=== PATIENT | female | born 1960 | race Caucasian/White ===

== ENCOUNTER → 2016-06-25 | Outpatient (CLI) | payer OTHER ==
[~2016-06-25] MED LIST: ADVAIR 500-501 EACH INH; CHANTIX0.5 MG PO; CLARITIN10 MG PO; DICYCLOMINE HCL20 MG PO; HYDROXYZINE HCL25 MG PO; KLONOPIN TAB 00.5 MG PO; LYRICA75 MG PO; MEDROL DOSEPAK 24 MG PO; NEXIUM40 MG PO; NORVASC 5 MG TAB5 MG PO; OMNICEF 300 MG300 MG PO; PROZAC40 MG PO; REQUIP1 MG PO; ROBITUSSIN PO; SINGULAIR10 MG PO; SYMBICORT 16010.2 GM INH; TRAZODONE HCL100 MG PO; TUDORZA PRESS400 MCG INH; VENTOLIN HFA 66.7 GM INH; VITAMIN D35000 UNIT PO; ZANTAC 150 MG150 MG PO
== END ==
LOC: KOH-I 07:53
DX: R10.9 Unspecified abdominal pain (principal); K76.0 Fatty (change of) liver, not elsewhere classified
CPT/HCPCS: 76705

== ENCOUNTER 2016-06-29 14:13 | Emergency (ER) | payer OTHER ==
[~2016-06-29 14:13] MED LIST changes: -ADVAIR 500-501 EACH INH; -CHANTIX0.5 MG PO
[2016-06-29 15:45] LABS: HEMOGLOBIN 11.6 gm/dl (12.3-15.3); RED BLOOD COUNT 3.95 M/UL (4.00-5.10); WHITE BLOOD COUNT 4.9 K/UL (4.5-11.0)
[2016-07-15] MEDS ORDERED: ADVAIR 500-501 EACH INH (09:18)
[2016-07-15] MEDS ORDERED: CHANTIX0.5 MG PO (09:20)
== END 2016-06-29 18:00 | disposition home or self-care (01) ==
LOC: ER1 14:13
PROVIDERS: Nurse Practitioner Family
DX: N20.0 Calculus of kidney (principal); J44.9 Chronic obstructive pulmonary disease, unspecified; J45.909 Unspecified asthma, uncomplicated; F17.210 Nicotine dependence, cigarettes, uncomplicated
CPT/HCPCS: 36415; 80053; 81001; 85025; 87086; 96374; 96375; 99284; J1885; J2270; J2405; J7030

== ENCOUNTER → 2016-07-12 | Outpatient (CLI) | payer OTHER ==
[~2016-07-12] MED LIST changes: +ADVAIR 500-501 EACH INH; +CHANTIX0.5 MG PO
== END ==
LOC: NM 11:02
DX: M54.9 Dorsalgia, unspecified (principal); M25.511 Pain in right shoulder; M25.512 Pain in left shoulder; R10.13 Epigastric pain; M25.812 Other specified joint disorders, left shoulder; M25.811 Other specified joint disorders, right shoulder; M48.06 Spinal stenosis, lumbar region
CPT/HCPCS: 72072; 72110; 73030; 78227; A9537; J2805

== ENCOUNTER → 2016-07-15 | Day surgery (SDC) | payer OTHER | END | disposition home or self-care (01) | LOC: OR 08:10 | PROVIDERS: Internal Medicine Gastroenterology | PROC: 0DB38ZX Excision of Lower Esophagus, Via Natural or Artificial Opening Endoscopic, Diagnostic (ICD-10-PCS; 2016-07-15) | PROC: 0DB48ZX Excision of Esophagogastric Junction, Via Natural or Artificial Opening Endoscopic, Diagnostic (ICD-10-PCS; 2016-07-15) | PROC: 0DB68ZX Excision of Stomach, Via Natural or Artificial Opening Endoscopic, Diagnostic (ICD-10-PCS; principal; 2016-07-15 14:30) | DX: K29.51 Unspecified chronic gastritis with bleeding (principal); K20.9 Esophagitis, unspecified; K44.9 Diaphragmatic hernia without obstruction or gangrene; J44.9 Chronic obstructive pulmonary disease, unspecified; J45.909 Unspecified asthma, uncomplicated; E66.9 Obesity, unspecified; R63.4 Abnormal weight loss; F17.200 Nicotine dependence, unspecified, uncomplicated; Z79.899 Other long term (current) drug therapy; Z98.51 Tubal ligation status | CPT/HCPCS: J2250; J3010; J7030 ==

== ENCOUNTER → 2016-08-23 | Outpatient (CLI) | payer OTHER ==
[2016-08-23 10:41] LABS: HEMOGLOBIN 13.4 gm/dl (12.3-15.3); RED BLOOD COUNT 4.57 M/UL (4.00-5.10); WHITE BLOOD COUNT 4.2 K/UL (4.5-11.0)
== END ==
LOC: LAB 09:56
PROVIDERS: Internal Medicine Nephrology
DX: N18.3 Chronic kidney disease, stage 3 (moderate) (principal)
CPT/HCPCS: 36415; 81001; 82043; 82570; 85027

== ENCOUNTER → 2016-08-26 | Outpatient (CLI) | payer OTHER | LOC: LAB 11:25 | PROVIDERS: Internal Medicine Nephrology | DX: N18.3 Chronic kidney disease, stage 3 (moderate) (principal) | CPT/HCPCS: 36415; 80048; 82550 ==

== ENCOUNTER 2016-08-30 17:38 | Emergency (ER) | payer OTHER ==
[2016-08-30 19:30] LABS: HEMOGLOBIN 11.4 gm/dl (12.3-15.3); RED BLOOD COUNT 3.91 M/UL (4.00-5.10); WHITE BLOOD COUNT 4.3 K/UL (4.5-11.0)
== END 2016-08-31 00:40 | disposition home or self-care (01) ==
LOC: ER1 17:38
PROVIDERS: Physician Assistant
DX: R10.827 Generalized rebound abdominal tenderness (principal); K21.9 Gastro-esophageal reflux disease without esophagitis; E78.5 Hyperlipidemia, unspecified; I13.10 Hypertensive heart and chronic kidney disease without heart failure, with stage 1 through stage 4 chronic kidney disease, or unspecified chronic kidney disease; F17.210 Nicotine dependence, cigarettes, uncomplicated; N18.9 Chronic kidney disease, unspecified; J44.9 Chronic obstructive pulmonary disease, unspecified; J45.909 Unspecified asthma, uncomplicated; F32.9 Major depressive disorder, single episode, unspecified; F41.9 Anxiety disorder, unspecified; J98.4 Other disorders of lung
CPT/HCPCS: 36415; 80053; 81001; 83690; 84484; 85025; 87086; 93005; 96374; 96375; 96376; 99284; J2270; J2405; J7050

== ENCOUNTER 2016-09-21 17:28 | Emergency (ER) | payer OTHER | END 2016-09-21 22:00 | disposition left against medical advice (07) | LOC: ER1 17:28 | DX: Z53.21 Procedure and treatment not carried out due to patient leaving prior to being seen by health care provider (principal) | CPT/HCPCS: 81001; 87086 ==

== ENCOUNTER 2016-09-29 13:38 | Emergency (ER) | payer OTHER ==
[2016-09-29 14:38] LABS: HEMOGLOBIN 13.8 gm/dl (12.3-15.3); RED BLOOD COUNT 4.69 M/UL (4.00-5.10)
== END 2016-09-29 18:10 | disposition home or self-care (01) ==
LOC: ER1 13:38
PROVIDERS: Emergency Medicine
DX: N39.0 Urinary tract infection, site not specified (principal); F17.200 Nicotine dependence, unspecified, uncomplicated; F41.9 Anxiety disorder, unspecified; Z98.51 Tubal ligation status; Z88.6 Allergy status to analgesic agent
CPT/HCPCS: 36415; 80053; 81001; 83690; 85025; 87040; 87086; 96374; 96375; 96376; 99284; J0696; J2270; J2405; J7050

== ENCOUNTER 2016-12-25 11:11 | Emergency (ER) | payer OTHER | END 2016-12-25 12:10 | disposition home or self-care (01) | LOC: ER1 11:11 | DX: G43.709 Chronic migraine without aura, not intractable, without status migrainosus (principal); I12.9 Hypertensive chronic kidney disease with stage 1 through stage 4 chronic kidney disease, or unspecified chronic kidney disease; N18.3 Chronic kidney disease, stage 3 (moderate); J45.909 Unspecified asthma, uncomplicated; F17.210 Nicotine dependence, cigarettes, uncomplicated; Z88.6 Allergy status to analgesic agent | CPT/HCPCS: 96372; 99283; J1100 ==

== ENCOUNTER → 2020-06-09 | Outpatient (CLI) | payer OTHER ==
[~2020-06-09] MED LIST changes: +ACID CONTROLLER20 MG PO; +ALBUTEROL1.25 MG/3 INH; +AMOXICILLIN500 MG PO; +AUGMENTIN 875-1 EACH PO; +BACTRIM DS TAB1 EACH PO; +BENTYL 10MG CAP10 MG PO; +BENTYL 20MG TAB20 MG PO; +BUSPAR 10MG10 MG PO; +CEFUROXIME500 MG PO; +COLACE CLEAR50 MG PO; +COMBIVENT RESPIM4 GM INH; +COMPAZINE10 MG PO; +CYCLOBENZAPRINE10 MG PO; +CYMBALTA 30 MG30 MG PO; +DOXYCYCLINE HY100 M2 PO; +DOXYCYCLINE HY100 MG PO; +FLONASE 0.05% N16 GM; +FLOVENT DISKU100 MCG INH; +HABITROL 21 MG P1 EA TD; +IMITREX100 MG PO; +INCRUSE ELLI62.5 MCG INH; +IPRAT-ALBUT 0.5-3 ML INH; +LASIX 40 MG TAB40 MG PO; +LORTAB 7.5-3251 EACH PO; +MACROBID 100 M100 MG PO; +MEDROL4 MG PO; +NASONEX17 GM; +NICOTINE GUM4 MG BU; +NITROSTAT0.4 MG SL; +NORCO 5-325 TA1 EACH PO; +NORCO 7.5-3251 EACH PO; +NORFLEX 100 MG100 MG PO; +NORVASC10 MG PO; +NURTEC ODT75 MG PO; +ONDANSETRON ODT4 MG PO; +PERCOCET 5-3251 EACH PO; +PERCOCET 5/325 T1 EA PO; +PHENERGAN 25 MG25 M1 PO; +PREDNISONE 20 M20 MG PO; +PREDNISONE 50 M50 MG PO; +PROAIR DIGIHAL90 MCG INH; +REGLAN10 MG PO; +ROBITUSSIN100 MG/51 PO; +ROPINIROLE HCL2 MG PO; +SYMBICORT 160-1 INHA INH; +TESSALON PERLE100 MG PO; +TIZANIDINE HCL4 MG PO; +TRAZODONE HCL50 MG PO; +TYLENOL 500 MG500 MG PO; +VIBRAMYCIN 100100 MG PO; +VIBRAMYCIN100 MG PO; +VISTARIL25 MG PO; +Voltaren Gel 1 % TOP; +ZANAFLEX4 M1 PO; +ZITHROMAX250 MG PO; +ZOFRAN ODT 4 MG4 MG PO; +ZOFRAN ODT 4 MG4 MG SL; +ZOFRAN4 MG PO; +ZYRTEC10 M3 PO
[2020-06-09 15:10] LABS: HEMOGLOBIN 13.7 gm/dl (12.3-15.3); RED BLOOD COUNT 4.44 M/UL (4.00-5.10)
== END ==
LOC: LAB 13:45
PROVIDERS: Internal Medicine Gastroenterology
DX: R10.10 Upper abdominal pain, unspecified (principal)
CPT/HCPCS: 36415; 80076; 82150; 83690; 85027

== ENCOUNTER → 2020-06-11 | Day surgery (SDC) | payer OTHER | END | disposition home or self-care (01) | LOC: OR 07:30 | PROVIDERS: Internal Medicine Gastroenterology | PROC: 0DB78ZX Excision of Stomach, Pylorus, Via Natural or Artificial Opening Endoscopic, Diagnostic (ICD-10-PCS; 2020-06-11) | PROC: 0DB68ZX Excision of Stomach, Via Natural or Artificial Opening Endoscopic, Diagnostic (ICD-10-PCS; 2020-06-11) | PROC: 0DB38ZX Excision of Lower Esophagus, Via Natural or Artificial Opening Endoscopic, Diagnostic (ICD-10-PCS; principal; 2020-06-11 09:40) | DX: K31.9 Disease of stomach and duodenum, unspecified (principal); K44.9 Diaphragmatic hernia without obstruction or gangrene; K21.00 Gastro-esophageal reflux disease with esophagitis, without bleeding; K29.50 Unspecified chronic gastritis without bleeding; K59.09 Other constipation; E78.5 Hyperlipidemia, unspecified; J44.9 Chronic obstructive pulmonary disease, unspecified; G43.909 Migraine, unspecified, not intractable, without status migrainosus; I12.9 Hypertensive chronic kidney disease with stage 1 through stage 4 chronic kidney disease, or unspecified chronic kidney disease; N18.30 Chronic kidney disease, stage 3 unspecified; F17.210 Nicotine dependence, cigarettes, uncomplicated; E66.9 Obesity, unspecified; Z68.30 Body mass index [BMI] 30.0-30.9, adult; Z88.6 Allergy status to analgesic agent; Z88.5 Allergy status to narcotic agent; Z79.899 Other long term (current) drug therapy; Z88.8 Allergy status to other drugs, medicaments and biological substances; Z99.81 Dependence on supplemental oxygen | CPT/HCPCS: J2704; J7040 ==

== ENCOUNTER 2020-06-30 15:04 | Emergency (ER) | payer OTHER ==
[~2020-06-30 15:04] MED LIST changes: -IMITREX100 MG PO; -ZOFRAN ODT 4 MG4 MG SL
[2020-06-30] MEDS ORDERED: ZOFRAN ODT 4 MG4 MG SL (17:25)
== END 2020-06-30 17:28 | disposition home or self-care (01) ==
LOC: ER1 15:04
DX: R11.2 Nausea with vomiting, unspecified (principal); J44.9 Chronic obstructive pulmonary disease, unspecified; Z20.822 Contact with and (suspected) exposure to COVID-19; N18.30 Chronic kidney disease, stage 3 unspecified; F17.210 Nicotine dependence, cigarettes, uncomplicated; Z88.6 Allergy status to analgesic agent; Z88.5 Allergy status to narcotic agent
CPT/HCPCS: 0240U; 71045; 99284

== ENCOUNTER 2020-07-29 22:43 | Observation (INO) | payer OTHER ==
[~2020-07-29] VITALS: Ht 154.9 cm; Wt 69.9 kg
[~2020-07-29 22:43] MED LIST changes: +ZOFRAN ODT 4 MG4 MG SL
[2020-07-30 00:28] LABS: HEMOGLOBIN 13.3 gm/dl (12.3-15.3); RED BLOOD COUNT 4.24 M/UL (4.00-5.10); WHITE BLOOD COUNT 8.7 K/UL (4.5-11.0)
[2020-07-30] MEDS ORDERED: IMITREX100 MG PO (10:26)
[2020-07-30] MEDS ORDERED: MEDROL DOSEPAK 24 MG PO (18:51)
== END 2020-07-30 19:48 | disposition home or self-care (01) ==
LOC: ER1 22:43 → CDU 07-30 01:57 → M/S 07-30 16:11
PROVIDERS: Student in an Organized Health Care Education/Training Program; ADMIT Internal Medicine
DX: I25.110 Atherosclerotic heart disease of native coronary artery with unstable angina pectoris (principal); J44.1 Chronic obstructive pulmonary disease with (acute) exacerbation; J96.01 Acute respiratory failure with hypoxia; N18.30 Chronic kidney disease, stage 3 unspecified; R77.8 Other specified abnormalities of plasma proteins; F41.9 Anxiety disorder, unspecified; K21.9 Gastro-esophageal reflux disease without esophagitis; F32.9 Major depressive disorder, single episode, unspecified; R94.31 Abnormal electrocardiogram [ECG] [EKG]; F17.210 Nicotine dependence, cigarettes, uncomplicated; Z99.81 Dependence on supplemental oxygen; Z88.5 Allergy status to narcotic agent; Z88.6 Allergy status to analgesic agent; Z88.8 Allergy status to other drugs, medicaments and biological substances; Z79.899 Other long term (current) drug therapy; Z20.822 Contact with and (suspected) exposure to COVID-19
CPT/HCPCS: 0240U; 36600; 71045; 80053; 82550; 82553; 82803; 83605; 83690; 83735; 83874; 83880; 84100; 84484; 85025; 85379; 85610; 85730; 93005; 94640; 94664; 94760; 96374; 96375; 99152; 99285; C1887; C1894; G0378; J1644; J2250; J2270; J2405; J2550; J2765; J2920; J3010; J7030; Q9965

== ENCOUNTER 2020-08-31 18:50 | Emergency (ER) | payer OTHER ==
[~2020-08-31 18:50] MED LIST changes: +IMITREX100 MG PO
[2020-08-31 21:14] LABS: HEMOGLOBIN 13.9 gm/dl (12.3-15.3); RED BLOOD COUNT 4.41 M/UL (4.00-5.10); WHITE BLOOD COUNT 4.8 K/UL (4.5-11.0)
[2020-08-31 21:41] LABS: BUN/CREATININE RATIO 12 (0-10)
[2020-08-31] MEDS ORDERED: OMNICEF 300 MG300 MG PO (23:11)
== END 2020-08-31 23:21 | disposition home or self-care (01) ==
LOC: ER1 18:50
PROVIDERS: Family Medicine
DX: N30.90 Cystitis, unspecified without hematuria (principal); G43.909 Migraine, unspecified, not intractable, without status migrainosus; J44.9 Chronic obstructive pulmonary disease, unspecified; N18.30 Chronic kidney disease, stage 3 unspecified; F17.200 Nicotine dependence, unspecified, uncomplicated; Z87.442 Personal history of urinary calculi; Z88.6 Allergy status to analgesic agent
CPT/HCPCS: 70450; 80053; 81001; 82550; 82553; 83690; 83874; 84484; 85025; 87086; 93005; 96374; 96375; 99284; J0696; J2270; J2405

== ENCOUNTER 2020-10-17 17:28 | Emergency (ER) | payer OTHER ==
[2020-10-17 18:00] LABS: HEMOGLOBIN 13.3 gm/dl (12.3-15.3); RED BLOOD COUNT 4.22 M/UL (4.00-5.10); WHITE BLOOD COUNT 6.6 K/UL (4.5-11.0)
[2020-10-17] MEDS ORDERED: PERCOCET 5-3251 EACH PO (23:15)
== END 2020-10-17 23:45 | disposition home or self-care (01) ==
LOC: ER1 17:28
PROVIDERS: Physician Assistant Medical
DX: R07.81 Pleurodynia (principal); J44.9 Chronic obstructive pulmonary disease, unspecified; I50.9 Heart failure, unspecified; Z90.49 Acquired absence of other specified parts of digestive tract; N18.9 Chronic kidney disease, unspecified; F17.290 Nicotine dependence, other tobacco product, uncomplicated
CPT/HCPCS: 71045; 80053; 82550; 82553; 83874; 83880; 84484; 85025; 85379; 93005; 99285; Q9967

== ENCOUNTER 2020-11-01 11:44 | Emergency (ER) | payer OTHER ==
[2020-11-01 14:22] LABS: HEMOGLOBIN 12.7 gm/dl (12.3-15.3); RED BLOOD COUNT 4.06 M/UL (4.00-5.10); WHITE BLOOD COUNT 5.8 K/UL (4.5-11.0)
[2020-11-01 14:44] LABS: BUN/CREATININE RATIO 13 (0-10)
== END 2020-11-01 18:27 | disposition home or self-care (01) ==
LOC: ER1 11:44
PROVIDERS: Physician Assistant
DX: R07.89 Other chest pain (principal); J44.9 Chronic obstructive pulmonary disease, unspecified; F17.200 Nicotine dependence, unspecified, uncomplicated
CPT/HCPCS: 71045; 80053; 82550; 82553; 83874; 84484; 85025; 93005; 96374; 96375; 99285; J0696; J2270; J2405

== ENCOUNTER 2020-11-08 22:14 | Emergency (ER) | payer OTHER ==
[2020-11-09 00:50] LABS: HEMOGLOBIN 12.3 gm/dl (12.3-15.3); RED BLOOD COUNT 4.08 M/UL (4.00-5.10)
== END 2020-11-09 05:55 | disposition short-term general hospital (02) ==
LOC: ER1 22:14
PROVIDERS: Physician Assistant Medical; Student in an Organized Health Care Education/Training Program
DX: R20.2 Paresthesia of skin (principal); J44.9 Chronic obstructive pulmonary disease, unspecified; N18.9 Chronic kidney disease, unspecified; F17.210 Nicotine dependence, cigarettes, uncomplicated; Z88.6 Allergy status to analgesic agent; Z90.49 Acquired absence of other specified parts of digestive tract; Z20.822 Contact with and (suspected) exposure to COVID-19
CPT/HCPCS: 0240U; 70450; 71045; 80053; 80307; 81001; 82550; 82553; 83605; 83735; 83874; 84100; 84439; 84443; 84484; 85025; 93005; 96374; 99285; J2270

== ENCOUNTER 2020-12-09 19:15 | Emergency (ER) | payer OTHER ==
[2020-12-09 21:20] LABS: HEMOGLOBIN 13.7 gm/dl (12.3-15.3); RED BLOOD COUNT 4.38 M/UL (4.00-5.10); WHITE BLOOD COUNT 6.8 K/UL (4.5-11.0)
[2020-12-09] MEDS ORDERED: OMNICEF 300 MG300 MG PO (22:21)
[2020-12-09] MEDS ORDERED: BENTYL 20MG TAB20 MG PO (22:21)
[2020-12-09] MEDS ORDERED: ZOFRAN4 MG PO (22:21)
== END 2020-12-09 22:26 | disposition home or self-care (01) ==
LOC: ER1 19:15
PROVIDERS: Physician Assistant Medical
DX: R10.9 Unspecified abdominal pain (principal); Z87.442 Personal history of urinary calculi; Z90.49 Acquired absence of other specified parts of digestive tract
CPT/HCPCS: 80053; 81001; 85025; 99284

== ENCOUNTER 2020-12-13 21:22 | Emergency (ER) | payer OTHER ==
[2020-12-14] MEDS ORDERED: CYCLOBENZAPRINE10 MG PO (01:59)
== END 2020-12-14 02:25 | disposition home or self-care (01) ==
LOC: ER1 21:22
DX: M25.561 Pain in right knee (principal); M25.551 Pain in right hip; J44.9 Chronic obstructive pulmonary disease, unspecified; Z88.6 Allergy status to analgesic agent; Z88.5 Allergy status to narcotic agent
CPT/HCPCS: 73502; 73552; 73562; 99283

== ENCOUNTER 2021-04-21 16:55 | Emergency (ER) | payer OTHER ==
[2021-04-21] MEDS ORDERED: PERCOCET 5/325 T1 EA PO (19:33)
== END 2021-04-21 20:05 | disposition home or self-care (01) ==
LOC: ER1 16:55
DX: R51.9 Headache, unspecified (principal); N18.30 Chronic kidney disease, stage 3 unspecified; F17.290 Nicotine dependence, other tobacco product, uncomplicated; J44.9 Chronic obstructive pulmonary disease, unspecified; G89.29 Other chronic pain
CPT/HCPCS: 96372; 99283; J2270; J2550

== ENCOUNTER 2021-06-28 18:41 | Emergency (ER) | payer OTHER ==
[2021-06-28 19:55] LABS: HEMOGLOBIN 10.7 gm/dl (12.3-15.3); RED BLOOD COUNT 3.44 M/UL (4.00-5.10); WHITE BLOOD COUNT 7.5 K/UL (4.5-11.0)
== END 2021-06-28 22:57 | disposition home or self-care (01) ==
LOC: ER1 18:41
PROVIDERS: Family Medicine
DX: G89.29 Other chronic pain (principal); M54.50 Low back pain, unspecified; J44.9 Chronic obstructive pulmonary disease, unspecified; N17.9 Acute kidney failure, unspecified; E86.0 Dehydration; D64.9 Anemia, unspecified; R20.1 Hypoesthesia of skin; Z87.442 Personal history of urinary calculi
CPT/HCPCS: 71045; 80053; 81001; 82550; 82553; 83605; 84484; 85025; 93005; 99284

== ENCOUNTER 2021-08-07 20:42 | Emergency (ER) | payer OTHER | END 2021-08-08 02:24 | disposition home or self-care (01) | LOC: ER1 20:42 | DX: R51.9 Headache, unspecified (principal); J44.9 Chronic obstructive pulmonary disease, unspecified; F17.200 Nicotine dependence, unspecified, uncomplicated; Z88.6 Allergy status to analgesic agent; Z88.5 Allergy status to narcotic agent | CPT/HCPCS: 71045; 96374; 96375; 99284; J2765 ==

== ENCOUNTER 2021-10-04 17:28 | Emergency (ER) | payer OTHER ==
[~2021-10-04 17:28] MED LIST changes: +PREDNISONE20 MG PO
== END 2021-10-04 18:07 | disposition home or self-care (01) ==
LOC: ER1 17:28
DX: G43.909 Migraine, unspecified, not intractable, without status migrainosus (principal); I10 Essential (primary) hypertension
CPT/HCPCS: 96372; 99283; J2270; J2405

== ENCOUNTER 2021-10-05 17:47 | Emergency (ER) | payer OTHER ==
[2021-10-05 20:28] LABS: HEMOGLOBIN 12.9 gm/dl (12.3-15.3); RED BLOOD COUNT 4.27 M/UL (4.00-5.10); WHITE BLOOD COUNT 5.7 K/UL (4.5-11.0)
== END 2021-10-05 21:55 | disposition home or self-care (01) ==
LOC: ER1 17:47
PROVIDERS: Physician Assistant Medical
DX: G43.909 Migraine, unspecified, not intractable, without status migrainosus (principal); J44.9 Chronic obstructive pulmonary disease, unspecified; Z88.6 Allergy status to analgesic agent; Z88.5 Allergy status to narcotic agent; Z87.891 Personal history of nicotine dependence
CPT/HCPCS: 70450; 80053; 85025; 96374; 96375; 99284; J1170; J2270; J2550

== ENCOUNTER 2021-10-10 19:07 | Emergency (ER) | payer OTHER ==
[2021-10-10 20:21] LABS: HEMOGLOBIN 13.1 gm/dl (12.3-15.3); RED BLOOD COUNT 4.31 M/UL (4.00-5.10); WHITE BLOOD COUNT 7.3 K/UL (4.5-11.0)
[2021-10-11] MEDS ORDERED: ONDANSETRON ODT4 MG SL (02:48)
[2021-10-11] MEDS ORDERED: CEPHALEXIN500 M1 PO (02:48)
[2021-10-11] MEDS ORDERED: IMODIUM CAP 2 MG2 MG PO (02:48)
== END 2021-10-11 02:56 | disposition home or self-care (01) ==
LOC: ER1 19:07
PROVIDERS: Physician Assistant
DX: G43.909 Migraine, unspecified, not intractable, without status migrainosus (principal); E86.0 Dehydration; N39.0 Urinary tract infection, site not specified; N28.9 Disorder of kidney and ureter, unspecified; R19.7 Diarrhea, unspecified; J44.9 Chronic obstructive pulmonary disease, unspecified; Z88.5 Allergy status to narcotic agent; Z88.6 Allergy status to analgesic agent
CPT/HCPCS: 80048; 80053; 81001; 83690; 85025; 87086; 96374; 96375; 99284; J0595; J1200; J2765

== ENCOUNTER → 2021-10-28 | Outpatient (CLI) | payer OTHER ==
[~2021-10-28] MED LIST changes: +CEPHALEXIN500 M1 PO; +IMODIUM CAP 2 MG2 MG PO; +ONDANSETRON ODT4 MG SL
== END ==
LOC: HEART 5 14:03
DX: I49.1 Atrial premature depolarization (principal)